=== PATIENT | female | born 1975 | race Caucasian/White ===

== ENCOUNTER 2020-12-08 14:55 | Observation (INO) | payer OTHER ==
[2020-12-08] MEDS ORDERED: ONDANSETRON 4 MG/2 ML VIAL IVP STA (15:28)
[2020-12-08] MEDS ORDERED: MORPHINE SULFATE 2 MG/ML SYRINGE IVP ONE (15:29)
--- NOTE | 2020-12-08 15:32 | ED ---
Abdominal Pain HPI - General Chief Complaint: Abdominal Pain Stated Complaint: Abd Pain Source: patient, RN notes reviewed, old records reviewed Mode of arrival: wheelchair Limitations: no limitations - History of Present Illness Initial Comments: 45-year-old white female, alert and oriented 4, presents to the emergency room with complaints of right lower quadrant pain for one week. Patient states it is constant and seems to be getting worse. She states she googled it and thinks it might be her appendix. She states that she has been feeling hot but has not actually checked her temperature. She has nausea and vomited once last night but mostly phlegm. She denies any diarrhea. Patient has had for C-sections but no other abdominal surgeries. She states she does not take any medicine on a daily basis. She also states that she has been depressed for the recent loss of her father. MD Complaint: abdominal pain -: week(s) (1) Location: RLQ Radiation: none Migration to: no migration Severity scale (1-10): 7 Quality: sharp Consistency: constant Improves With: nothing Worsens With: nothing Associated Symptoms: nausea, other (Weakness) - Related Data LMP Date: 12/03/20 LMP (females 10-50): last week Allergies Allergy/AdvReac Type Severity Reaction Status Date / Time No Known Allergies Allergy Verified 12/08/20 15:06 Review of Systems ROS Statement: Those systems with pertinent positive or pertinent negative responses have been documented in the HPI. ROS Other: All systems not noted in ROS Statement are negative. Past Medical History Past Medical History: No Reported History Additional Past Medical History / Comment(s): manic depression History of Any Multi-Drug Resistant Organisms: None Reported Past Surgical History: Adenoidectomy, Section, Tonsillectomy Past Psychological History: Anxiety, Bipolar, Depression Smoking Status: Current every day smoker Past Alcohol Use History: None Reported Past Drug Use History: Marijuana General Exam Limitations: no limitations General appearance: alert, in no apparent distress Head exam: Present: atraumatic, normocephalic, normal inspection Eye exam: Present: normal appearance, PERRL, EOMI. Absent: scleral icterus, conjunctival injection, periorbital swelling Pupils: Present: normal accommodation ENT exam: Present: normal exam, normal oropharynx, mucous membranes moist Neck exam: Present: normal inspection, full ROM. Absent: tenderness, meningism us, lymphadenopathy, thyromegaly Respiratory exam: Present: normal lung sounds bilaterally. Absent: respiratory distress, wheezes, rales, rhonchi, stridor, chest wall tenderness, accessory muscle use, decreased breath sounds Cardiovascular Exam: Present: regular rate, normal rhythm, normal heart sounds. Absent: systolic murmur, diastolic murmur, rubs, gallop, clicks, JVD GI/Abdominal exam: Present: soft, tenderness (Right lower quadrant), normal bowel sounds, other (Negative psoas). Absent: distended, guarding, rebound, rigid, mass Extremities exam: Present: normal inspection, full ROM, normal capillary refill. Absent: tenderness, pedal edema, joint swelling, calf tenderness Back exam: Present: normal inspection, full ROM. Absent: tenderness, CVA tenderness (R), CVA tenderness (L), muscle spasm, paraspinal tenderness, vertebral tenderness Neurological exam: Present: alert, oriented X3, CN II-XII intact Psychiatric exam: Present: normal affect, normal mood Skin exam: Present: warm, dry, intact, normal color. Absent: rash, cyanosis, diaphoretic, erythema, petechiae, pallor, mottled Course Vital Signs 12/08/20 12/08/20 15:07 16:46 Temperature 98.1 F Pulse Rate 94 68 Respiratory 20 18 Rate Blood Pressure 114/70 109/72 O2 Sat by Pulse 100 100 Oximetry Medical Decision Making - Medical Decision Making UA shows 2+ ketones with large blood and small leukocyte esterase and no nitrites. Patient states she is just finishing her menses. Her WBC count 19.3. CT of the abdomen and pelvis there is a small air bubble in the appendix at the attachment with the cecum. appendix is not identified could be consistent with an appendicitis with elevated WBC count. Patient was started on Zosyn and surgery was contacted. Patient will be admitted. Case discussed with . - Lab Data Result diagrams: 12/08/20 15:31 12/08/20 15:31 Lab Results 12/08/20 12/08/20 12/08/20 Range/Units 08:30 15:31 15:31 WBC 19.3 H (3.8-10.6) k/uL RBC 4.14 (3.80-5.40) m/uL Hgb 13.8 (11.4-16.0) gm/dL Hct 42.8 (34.0-46.0) % MCV 103.3 H (80.0-100.0) fL MCH 33.4 (25.0-35.0) pg MCHC 32.3 (31.0-37.0) g/dL RDW 12.4 (11.5-15.5) % Plt Count 349 (150-450) k/uL MPV 7.5 Neutrophils % 85 % Lymphocytes % 8 % Monocytes % 5 % Eosinophils % 1 % Basophils % 0 % Neutrophils # 16.4 H (1.3-7.7) k/uL Lymphocytes # 1.5 (1.0-4.8) k/uL Monocytes # 0.9 (0-1.0) k/uL Eosinophils # 0.2 (0-0.7) k/uL Basophils # 0.1 (0-0.2) k/uL Macrocytosis Slight Sodium (137-145) mmol/L Potassium (3.5-5.1) mmol/L Chloride (98-107) mmol/L Carbon Dioxide (22-30) mmol/L Anion Gap mmol/L BUN (7-17) mg/dL Creatinine (0.52-1.04) mg/dL Est GFR (CKD-EPI)AfAm (>60 ml/min/1.73 sqM) Est GFR (CKD-EPI)NonAf (>60 ml/min/1.73 sqM) Glucose (74-99) mg/dL Plasma Lactic Acid Rolando (0.7-2.0) mmol/L Calcium (8.4-10.2) mg/dL Total Bilirubin (0.2-1.3) mg/dL AST (14-36) U/L ALT (4-34) U/L Alkaline Phosphatase (38-126) U/L Total Protein (6.3-8.2) g/dL Albumin (3.5-5.0) g/dL Amylase (30-110) U/L Lipase (23-300) U/L Urine Color Yellow Urine Appearance Cloudy H (Clear) Urine pH 5.5 (5.0-8.0) Ur Specific Mclean 1.027 (1.001-1.035) Urine Protein Trace H (Negative) Urine Glucose (UA) Negative (Negative) Urine Ketones 2+ H (Negative) Urine Blood Large H (Negative) Urine Nitrite Negative (Negative) Urine Bilirubin Negative (Negative) Urine Urobilinogen <2.0 (<2.0) mg/dL Ur Leukocyte Esterase Small H (Negative) Urine RBC 9 H (0-5) /hpf Urine WBC 7 H (0-5) /hpf Ur Squamous Epith Cells 9 H (0-4) /hpf Urine Bacteria Rare H (None) /hpf Urine Mucus Occasional H (None) /hpf Urine HCG, Qual Not Detected (Not Detectd) 12/08/20 12/08/20 Range/Units 15:31 15:31 WBC (3.8-10.6) k/uL RBC (3.80-5.40) m/uL Hgb (11.4-16.0) gm/dL Hct (34.0-46.0) % MCV (80.0-100.0) fL MCH (25.0-35.0) pg MCHC (31.0-37.0) g/dL RDW (11.5-15.5) % Plt Count (150-450) k/uL MPV Neutrophils % % Lymphocytes % % Monocytes % % Eosinophils % % Basophils % % Neutrophils # (1.3-7.7) k/uL Lymphocytes # (1.0-4.8) k/uL Monocytes # (0-1.0) k/uL Eosinophils # (0-0.7) k/uL Basophils # (0-0.2) k/uL Macrocytosis Sodium 133 L (137-145) mmol/L Potassium 4.1 (3.5-5.1) mmol/L Chloride 100 (98-107) mmol/L Carbon Dioxide 24 (22-30) mmol/L Anion Gap 9 mmol/L BUN 14 (7-17) mg/dL Creatinine 0.75 (0.52-1.04) mg/dL Est GFR (CKD-EPI)AfAm >90 (>60 ml/min/1.73 sqM) Est GFR (CKD-EPI)NonAf >90 (>60 ml/min/1.73 sqM) Glucose 102 H (74-99) mg/dL Plasma Lactic Acid Rolando 1.4 (0.7-2.0) mmol/L Calcium 9.5 (8.4-10.2) mg/dL Total Bilirubin 0.5 (0.2-1.3) mg/dL AST 29 (14-36) U/L ALT 13 (4-34) U/L Alkaline Phosphatase 75 (38-126) U/L Total Protein 7.1 (6.3-8.2) g/dL Albumin 4.4 (3.5-5.0) g/dL Amylase 37 (30-110) U/L Lipase 11 L (23-300) U/L Urine Color Urine Appearance (Clear) Urine pH (5.0-8.0) Ur Specific Mclean (1.001-1.035) Urine Protein (Negative) Urine Glucose (UA) (Negative) Urine Ketones (Negative) Urine Blood (Negative) Urine Nitrite (Negative) Urine Bilirubin (Negative) Urine Urobilinogen (<2.0) mg/dL Ur Leukocyte Esterase (Negative) Urine RBC (0-5) /hpf Urine WBC (0-5) /hpf Ur Squamous Epith Cells (0-4) /hpf Urine Bacteria (None) /hpf Urine Mucus (None) /hpf Urine HCG, Qual (Not Detectd) Disposition Clinical Impression: Abdominal pain Disposition: ADMITTED IP TO THIS [facility] Condition: Good Referrals: None,Stated [Primary Care Provider] - 1-2 days Decision Date: 12/08/20 Decision Time: 16:56
[2020-12-08 15:39] LABS: Basophils # (A) 0.1 k/uL (0-0.2); Basophils % (A) 0 %; Eosinophils # (A) 0.2 k/uL (0-0.7); Eosinophils % (A) 1 %; HCT 42.8 % (34.0-46.0); HGB 13.8 gm/dL (11.4-16.0); Lymphocytes # (A) 1.5 k/uL (1.0-4.8); Lymphocytes % (A) 8 %; MCH 33.4 pg (25.0-35.0); MCHC 32.3 g/dL (31.0-37.0); MCV 103.3 fL (80.0-100.0); Macrocytosis Slight; Mean Platelet Volume 7.5; Monocytes # (A) 0.9 k/uL (0-1.0); Monocytes % (A) 5 %; Neutrophils # (A) 16.4 k/uL (1.3-7.7); Neutrophils % (A) 85 %; Platelet Count 349 k/uL (150-450); RBC 4.14 m/uL (3.80-5.40); RDW 12.4 % (11.5-15.5); WBC 19.3 k/uL (3.8-10.6)
[2020-12-08 15:41] LABS: Appearance,Urine Cloudy (Clear); Bacteria,Urine Rare /hpf; Bilirubin,Urine Negative (Negative); Blood,Urine Large (Negative); Color,Urine Yellow; Glucose,Urine (UA) Negative (Negative); Ketones,Urine 2+ (Negative); Leukocyte Esterase,Urine Small (Negative); Mucus,Urine Occasional /hpf; Nitrite,Urine Negative (Negative); PH, Urine 5.5 (5.0-8.0); Protein,Urine Trace (Negative); RBC,Urine 9 /hpf (0-5); Specific Gravity,Urine 1.027 (1.001-1.035); Squamous Epithelial Cell,Urine 9 /hpf (0-4); Urobilinogen,Urine <2.0 mg/dL (<2.0); WBC,Urine 7 /hpf (0-5)
[2020-12-08 15:57] LABS: ALT 13 U/L (4-34); AST 29 U/L (14-36); African American GFR (CKD) >90 (>60 ml/min/1.73 sqM); Albumin 4.4 g/dL (3.5-5.0); Alkaline Phosphatase 75 U/L (38-126); Amylase 37 U/L (30-110); Anion Gap 9 mmol/L; Blood Urea Nitrogen 14 mg/dL (7-17); Calcium 9.5 mg/dL (8.4-10.2); Carbon Dioxide 24 mmol/L (22-30); Chloride 100 mmol/L (98-107); Glucose 102 mg/dL (74-99); Lipase 11 U/L (23-300); Non-African American GFR(CKD) >90 (>60 ml/min/1.73 sqM); Potassium 4.1 mmol/L (3.5-5.1); Sodium 133 mmol/L (137-145); Total Bilirubin 0.5 mg/dL (0.2-1.3); Total Protein 7.1 g/dL (6.3-8.2)
--- NOTE | 2020-12-08 16:13 | CT ---
EXAMINATION TYPE: CT abdomen pelvis wo con DATE OF EXAM: 12/08/2020 COMPARISON: None HISTORY: RLQ pain with nausea for [address] DLP: 276.8 mGycm Automated exposure control for dose reduction was used. Images obtained from the diaphragm to the floor the pelvis with no contrast. Lung bases are clear. There is no pleural effusion. Heart size is normal. There is no pericardial eff usion. The stomach is intact. Liver spleen pancreas gallbladder appear intact. The bile ducts are not dilated. There is no adrenal mass. Kidneys have normal size. There is 3 mm calculus medial right kidney. There is no hydronephrosis. Ureters are not dilated. There is no sign of retroperitoneal adenopathy. Bladd er distends smoothly. There is no inguinal hernia. The uterus is anteverted. There is no pelvic mass. There is no free fluid in the pelvis. There is no evidence of mesenteric edema. There is no ascites or free air. There is no evidence of meliza wel obstruction. Appendix is not seen. There is no sign of thickened appendix. Terminal ileum appears normal. The lumbar vertebra have normal spacing and alignment. Posterior elements are intact. There is no com pression fracture. The bony pelvis appears normal. There is no hip dysplasia. Hip joints appear mak l. IMPRESSION: Negative CT scan abdomen and pelvis. Appendix not identified. This could be appendectomy and should B E correlated with the surgical history. There is small air bubble in the appendix at the attachment w ith the cecum. The remainder of the appendix is not identified.
[2020-12-08] MEDS ORDERED: SODIUM CHLORIDE 0.9% 1,000 ML IV ONE (16:57)
[2020-12-08] MEDS ORDERED: PIPERACILLIN-TAZOBACTAM 3.375 GM in SODIUM CHLORIDE 0.9% 100 ML IVPB STA (17:40)
[2020-12-08] MEDS ORDERED: MORPHINE SULFATE 4 MG/ML SYRINGE IV PRN (17:41)
[2020-12-08] MEDS ORDERED: NALOXONE 0.4 MG/ML 1 ML VIAL IV PRN (17:41)
[2020-12-08] MEDS: SODIUM CHLORIDE 0.9% 1,000 ML IV SCH (18:55)
[2020-12-09] MEDS: PIPERACILLIN-TAZOBACTAM 3.375 GM in SODIUM CHLORIDE 0.9% 100 ML IVPB SCH ×3 (02:42→18:49)
[2020-12-09 07:16] LABS: Basophils % (A) 0 %; Eosinophils # (A) 0.1 k/uL (0-0.7); Eosinophils % (A) 1 %; HCT 38.5 % (34.0-46.0); HGB 12.7 gm/dL (11.4-16.0); Lymphocytes # (A) 3.1 k/uL (1.0-4.8); Lymphocytes % (A) 32 %; MCH 34.2 pg (25.0-35.0); MCV 103.6 fL (80.0-100.0); Macrocytosis Slight; Mean Platelet Volume 7.5; Monocytes # (A) 0.6 k/uL (0-1.0); Monocytes % (A) 6 %; Neutrophils # (A) 5.8 k/uL (1.3-7.7); Neutrophils % (A) 59 %; Platelet Count 314 k/uL (150-450); RBC 3.72 m/uL (3.80-5.40); RDW 12.2 % (11.5-15.5); WBC 9.8 k/uL (3.8-10.6)
--- NOTE | 2020-12-09 08:30 | XR ---
EXAMINATION TYPE: XR chest 2V DATE OF EXAM: 12/09/2020 COMPARISON: NONE HISTORY: Congested cough, reports coughing up blood TECHNIQUE: Frontal and lateral views of the chest are obtained. FINDINGS: There is no focal air space opacity. Hyperinflation compatible with COPD. No evidence for pneumothorax. No pleural effusion. The cardiac silhouette size is within normal limits. The osseous structures are grossly intact. IMPRESSION: 1. Correlate for COPD.
--- NOTE | 2020-12-09 09:33 | P.GSHP ---
History of Present Illness H&P Date: 12/09/20 CHIEF COMPLAINT: Abdominal pain HISTORY OF PRESENT ILLNESS: This is a 45-year-old female with prior history of nicotine dependence, anxiety, depression and bipolar. Past surgical history includes . She presents to the hospital with 1 week complaint of right lower quadrant pain. Her pain has been constant and continues to increase. Patient reports that she's been feeling hot she's had some nausea and vomited once. PAST MEDICAL HISTORY: See list. PAST SURGICAL HISTORY: See list. MEDICATIONS: See list. ALLERGIES: See list. SOCIAL HISTORY: No illicit drug use. REVIEW OF SYSTEMS: CONSTITUTIONAL: Denies fever or chills. HEENT: Denies blurred vision, vision changes, or eye pain. Denies hemoptysis CARDIOVASCULAR: Denies chest pain or pressure. RESPIRATORY: No shortness of breath. GASTROINTESTINAL: See HPI for pertinent findings HEMATOLOGIC: Denies bleeding disorders. GENITOURINARY: Denies any blood in urine or increased urinary frequency. SKIN: Denies pruitis. Denies rash. PHYSICAL EXAM: VITAL SIGNS: Reviewed GENERAL: Well-developed in no acute distress. HEENT: No sclera icterus. Extraocular movements grossly intact. Moist buccal mucosa. Head is atraumatic, normocephalic. No nasal drainage. ABDOMEN: Soft. Nondistended. Tenderness with palpation to right lower quadrant. NEUROLOGIC: Alert and oriented. Cranial nerves II through XII grossly intact. LABORATORY DATA: WBC 19.3 down to 9.8 hemoglobin, 0.7 platelets 314 sodium 133 potassium 4.1 crea tinine 0.75 lactic 1.4 LFTs normal lipase 11 Urinalysis no evidence of infection Urine hCG not detected IMAGING: Computed tomography scan of abdomen and pelvis appendix not identified. This could be appendectomy should be correlated with surgical history. There is small air bubble in the appendix at the attachment with the cecum. The remainder of the appendix is not identified ASSESSMENT: 1. Acute appendicitis 2. Nicotine dependence 3. Bipolar history PLAN: -Patient scheduled for laparoscopic appendectomy today with Dr. Bobo -Keep patient nothing by mouth -Continue IV fluids -Continue IV antibiotics -Continue pain medication as needed -Consult placed for medical management and psychiatry Physician Line Fixer note has been reviewed by physician. Signing provider agrees with the documented findings, assessment, and plan of care. Past Medical History Past Medical History: No Reported History Additional Past Medical History / Comment(s): Manic depression, History of Any Multi-Drug Resistant Organisms: None Reported Past Surgical History: Adenoidectomy, Section, Hernia Repair, Tonsillectomy Additional Past Surgical History / Comment(s): Femoral hernia surgery with mesh Past Psychological History: Anxiety, Bipolar, Depression Smoking Status: Current every day smoker Past Alcohol Use History: None Reported Past Drug Use History: Marijuana - Past Family History Mother Family Medical History: Diabetes Mellitus, Hypertension Medications and Allergies Home Medications Medication Instructions Recorded Confirmed Type No Known Home Medications 12/08/20 12/08/20 History Allergies Allergy/AdvReac Type Severity Reaction Status Date / Time No Known Allergies Allergy Verified 12/08/20 21:58 Surgical - Exam Vital Signs Temp Pulse Resp BP Pulse Ox 98.1 F 94 20 114/70 100 12/08/20 15:07 12/08/20 15:07 12/08/20 15:07 12/08/20 15:07 12/08/20 15:07 Results - Labs 12/09/20 07:05 12/08/20 15:31 Abnormal Lab Results - Last 24 Hours (Table) 12/08/20 12/08/20 12/08/20 Range/Units 15:31 15:31 15:31 WBC 19.3 H (3.8-10.6) k/uL RBC (3.80-5.40) m/uL MCV 103.3 H (80.0-100.0) fL Neutrophils # 16.4 H (1.3-7.7) k/uL Sodium 133 L (137-145) mmol/L Glucose 102 H (74-99) mg/dL Lipase 11 L (23-300) U/L Urine Appearance Cloudy H (Clear) Urine Protein Trace H (Negative) Urine Ketones 2+ H (Negative) Urine Blood Large H (Negative) Ur Leukocyte Esterase Small H (Negative) Urine RBC 9 H (0-5) /hpf Urine WBC 7 H (0-5) /hpf Ur Squamous Epith Cells 9 H (0-4) /hpf Urine Bacteria Rare H (None) /hpf Urine Mucus Occasional H (None) /hpf 12/09/20 Range/Units 07:05 WBC (3.8-10.6) k/uL RBC 3.72 L (3.80-5.40) m/uL MCV 103.6 H (80.0-100.0) fL Neutrophils # (1.3-7.7) k/uL Sodium (137-145) mmol/L Glucose (74-99) mg/dL Lipase (23-300) U/L Urine Appearance (Clear) Urine Protein (Negative) Urine Ketones (Negative) Urine Blood (Negative) Ur Leukocyte Esterase (Negative) Urine RBC (0-5) /hpf Urine WBC (0-5) /hpf Ur Squamous Epith Cells (0-4) /hpf Urine Bacteria (None) /hpf Urine Mucus (None) /hpf Diabetes panel 12/08/20 Range/Units 15:31 Sodium 133 L (137-145) mmol/L Potassium 4.1 (3.5-5.1) mmol/L Chloride 100 (98-107) mmol/L Carbon Dioxide 24 (22-30) mmol/L BUN 14 (7-17) mg/dL Creatinine 0.75 (0.52-1.04) mg/dL Glucose 102 H (74-99) mg/dL Calcium 9.5 (8.4-10.2) mg/dL AST 29 (14-36) U/L ALT 13 (4-34) U/L Alkaline Phosphatase 75 (38-126) U/L Total Protein 7.1 (6.3-8.2) g/dL Albumin 4.4 (3.5-5.0) g/dL Calcium panel 12/08/20 Range/Units 15:31 Calcium 9.5 (8.4-10.2) mg/dL Albumin 4.4 (3.5-5.0) g/dL Pituitary panel 12/08/20 Range/Units 15:31 Sodium 133 L (137-145) mmol/L Potassium 4.1 (3.5-5.1) mmol/L Chloride 100 (98-107) mmol/L Carbon Dioxide 24 (22-30) mmol/L BUN 14 (7-17) mg/dL Creatinine 0.75 (0.52-1.04) mg/dL Glucose 102 H (74-99) mg/dL Calcium 9.5 (8.4-10.2) mg/dL Adrenal panel 12/08/20 Range/Units 15:31 Sodium 133 L (137-145) mmol/L Potassium 4.1 (3.5-5.1) mmol/L Chloride 100 (98-107) mmol/L Carbon Dioxide 24 (22-30) mmol/L BUN 14 (7-17) mg/dL Creatinine 0.75 (0.52-1.04) mg/dL Glucose 102 H (74-99) mg/dL Calcium 9.5 (8.4-10.2) mg/dL Total Bilirubin 0.5 (0.2-1.3) mg/dL AST 29 (14-36) U/L ALT 13 (4-34) U/L Alkaline Phosphatase 75 (38-126) U/L Total Protein 7.1 (6.3-8.2) g/dL Albumin 4.4 (3.5-5.0) g/dL
[2020-12-09] MEDS ORDERED: ONDANSETRON 4 MG/2 ML VIAL ONE ×2 (14:48→16:31)
[2020-12-09] MEDS ORDERED: IV FLUID CONTINUATION 600 ML IV ONE (14:50)
--- NOTE | 2020-12-09 14:50 | P.CN ---
Psychiatric Consult - . Consult date: 12/09/20 Consult:: The patient's chart and history was reviewed by this Psychiatrist. Psychiatry attempted to evaluate the patient today at 1445 but was informed by the unit nurse that the patient is currently in surgery. We will re-attempt to evaluate the patient tomorrow. Regards, Jean Kenny MD 12/09/20 14:49
[2020-12-09 15:04] VITALS: BMI 18.8
[2020-12-09] MEDS ORDERED: HEPARIN SODIUM,PORCINE 5,000 UNIT/ML 1 ML VIAL SQ ONE (15:04)
[2020-12-09] MEDS ORDERED: ONDANSETRON 4 MG/2 ML VIAL IVP ONE ×3 (15:04→16:34)
[2020-12-09] MEDS ORDERED: NEOSTIGMINE 1 MG/ML 10 ML VIAL ONE (15:25)
[2020-12-09] MEDS ORDERED: LIDOCAINE 1% INJ 10MG/ML (20 ML MDV) ONE (15:25)
[2020-12-09] MEDS ORDERED: SUCCINYLCHOLINE CHLORIDE 100 MG/5 ML SYR IV ONE (15:25)
[2020-12-09] MEDS ORDERED: PROPOFOL 10 MG/ML 20 ML VIAL IV ONE (15:25)
[2020-12-09] MEDS ORDERED: fentaNYL (PF) 50 MCG/ML 2 ML AMP ONE (15:25)
[2020-12-09] MEDS ORDERED: MIDAZOLAM 2 MG/2 ML VIAL ONE (15:25)
[2020-12-09] MEDS ORDERED: GLYCOPYRROLATE 0.2 MG/ML 2 ML VIAL ONE (15:25)
[2020-12-09] MEDS ORDERED: ROCURONIUM 10 MG/ML (5 ML VIAL) IV ONE (15:25)
[2020-12-09] MEDS ORDERED: LIDOCAINE 2%-EPI 1:100,000 20 ML VIAL SQ ONE (15:38)
--- NOTE | 2020-12-09 16:04 | P.OP ---
Date of Procedure: 12/09/20 Preoperative Diagnosis: Acute appendicitis Postoperative Diagnosis: Acute appendicitis Procedure(s) Performed: Laparoscopic appendectomy Anesthesia: WON Surgeon: Lorenzo Bobo Estimated Blood Loss (ml): 5 Pathology: other (Appendix) Condition: stable Disposition: PACU Description of Procedure: HarThe patient's placed on the operating table in the supine position. The patient received general anesthesia. The abdomen was prepped and draped in the usual sterile fashion. The skin was anesthetized 1% local Xylocaine at the trocar sites. Using an 11 blade the skin was incised at the umbilicus. The umbilicus was grasped with a [place] clamp and then a Veress needle was placed into the peritoneal cavity. Position of the Veress needle was confirmed with positive drop test. After adequate insufflation a 5 mm trocar was placed into the peritoneal cavity. The abdomen was further insufflated. And then the laparoscope was placed in the peritoneal cavity. Next a 5 mm trocar was placed in the midline suprapubic position. And then a 10 mm trocar was placed in the midline epigastric position. The patient was rotated with the right side up and in Trendelenburg. The appendix was visualized. The appendix appeared to be inflamed. The appendix was grasped and then using the Harmonic scissors the mesoappendix was divided. A PDS Endoloop was then placed around the base of the appendix. And then the appendix was divided using Harmonic scissors. The appendix was placed into an Endo Catch and brought out through the 10 mm trocar site. The abdomen was irrigated. There is no bleeding seen. The trochars withdrawn. The skin was closed interrupted 3-0 Monocryl suture. Dermabond dressing was applied. Patient was sent to recovery room in stable condition.
[2020-12-09] MEDS ORDERED: LACTATED RINGERS 1,000 ML IV ONE (16:08)
[2020-12-09] MEDS ORDERED: HYDROmorphone 0.5 MG/0.5 ML SYRINGE IVP ONE (16:40)
[2020-12-09] MEDS: SODIUM CHLORIDE 0.9% 1,000 ML IV SCH ×2 (18:53→20:33)
[2020-12-09] MEDS ORDERED: HEPARIN SODIUM,PORCINE/PF 5,000 UNIT/0.5 ML SYRINGE SQ SCH (21:00)
--- NOTE | 2020-12-09 21:59 | P.CONS ---
History of Present Illness - Reason for Consult Consult date: 12/09/20 Medical management - Chief Complaint Abdominal pain - History of Present Illness Patient is a 45-year-old female with a known history of maniac depression, anxiety, bipolar disorder, currently everyday smoker and marijuana use presents to ER with the complaints of right lower quadrant abdominal pain for the past 1 week. Due to worsening pain patient presented to ER. Pain is associated with nausea and episode of vomiting. Patient was also complaining of subjective fevers on admission. Denied any diarrhea. He currently does not take any other medications. No recent illnesses. No cough or sputum production. No chest pain or shortness of breath. Chest x-ray showed correlate for COPD CT of abdomen pelvis showed appendix not identified. This could be appendectomy and correlate with surgical history. There is small air bubble in the appendix and the attachment with the cecum. The remainder of the appendix is not identified. Laboratory data showed WBC 19.3, hemoglobin 13.8 and platelets 349 Sodium 133 potassium 4.1 chloride 100 BUN 14 and creatinine 0.75 liver enzymes are not elevated Urinalysis showed cloudy with large blood and small leukocytes trace Review of Systems Constitutional: Patient denies any fever or chills . No generalized weakness or weight loss. Abdomen: as per HPI. Cardiovascular: Patient denies any chest pain or short of breath no palpitations. Respiratory: patient denied any cough or sputum production. No shortness of b reath Neurologic: Patient denied any numbness or tingling headache. Musculoskeletal: Patient denies any complaints of joint swelling or deformity. Skin: Negative Psychiatric: Negative Endocrine: No heat or cold intolerance. No recent weight gain. Genitourinary: No dysuria or hematuria. All other 14 point ROS negative except the above Past Medical History Past Medical History: No Reported History Additional Past Medical History / Comment(s): Manic depression, History of Any Multi-Drug Resistant Organisms: None Reported Past Surgical History: Adenoidectomy, Section, Hernia Repair, Tonsillectomy Additional Past Surgical History / Comment(s): Femoral hernia surgery with mesh Past Psychological History: Anxiety, Bipolar, Depression Smoking Status: Current every day smoker Past Alcohol Use History: None Reported Past Drug Use History: Marijuana - Past Family History Mother Family Medical History: Diabetes Mellitus, Hypertension Medications and Allergies Home Medications Medication Instructions Recorded Confirmed Type No Known Home Medications 12/08/20 12/08/20 History Allergies Allergy/AdvReac Type Severity Reaction Status Date / Time No Known Allergies Allergy Verified 12/09/20 14:34 Physical Exam Vitals: Vital Signs Temp Pulse Pulse Pulse Resp BP BP 12/09/20 08:40 97.6 F 61 16 92/53 12/09/20 08:25 97.6 F 61 16 92/53 12/09/20 08:00 16 12/09/20 01:48 98.1 F 60 16 100/53 12/08/20 20:41 98.8 F 75 18 104/61 12/08/20 18:52 98.4 F 65 18 110/71 12/08/20 18:14 98.1 F 71 20 103/61 12/08/20 16:46 68 18 109/72 12/08/20 15:07 98.1 F 94 20 114/70 Pulse Ox 12/09/20 08:40 95 12/09/20 08:25 95 12/09/20 08:00 12/09/20 01:48 96 12/08/20 20:41 96 12/08/20 18:52 98 12/08/20 18:14 97 12/08/20 16:46 100 12/08/20 15:07 100 Intake and Output 12/08/20 12/09/20 12/09/20 22:59 06:59 14:59 Intake Total 1620 Output Total 400 Balance 1620 -400 Intake: Oral 1620 Output: Urine 400 Other: Weight 49.9 kg PHYSICAL EXAMINATION: Patient is lying in the bed comfortably, no acute distress, awake alert and oriented.. HEENT: Normocephalic. Neck is supple. Pupils reactive. Nostrils clear. Oral cavity is moist. Neck reveals no JVD, carotid bruits, or thyromegaly. CHEST EXAMINATION: Trachea is central. Symmetrical expansion. Lung so clear to auscultation and percussion. CARDIAC: Normal S1, S2 with no gallops. No murmurs ABDOMEN: Soft. Mild right lower quadrant tenderness. Surgical site intact.Bowel sounds normal. No organomegaly. No abdominal bruits. Extremities: reveal no edema. No clubbing or cyanosis Neurologically awake, alert, oriented x3 with well-coordinated movements. No focal deficits noted Skin: No rash or skin lesions. Psychiatric: Coperative. anxious. Musculoskeletal: No joint swelling or deformity. Normal range of motion. Results CBC & Chem 7: 12/09/20 07:05 12/08/20 15:31 Labs: Abnormal Lab Results - Last 24 Hours (Table) 12/08/20 12/08/20 12/08/20 Range/Units 15:31 15:31 15:31 WBC 19.3 H (3.8-10.6) k/uL RBC (3.80-5.40) m/uL MCV 103.3 H (80.0-100.0) fL Neutrophils # 16.4 H (1.3-7.7) k/uL Sodium 133 L (137-145) mmol/L Glucose 102 H (74-99) mg/dL Lipase 11 L (23-300) U/L Urine Appearance Cloudy H (Clear) Urine Protein Trace H (Negative) Urine Ketones 2+ H (Negative) Urine Blood Large H (Negative) Ur Leukocyte Esterase Small H (Negative) Urine RBC 9 H (0-5) /hpf Urine WBC 7 H (0-5) /hpf Ur Squamous Epith Cells 9 H (0-4) /hpf Urine Bacteria Rare H (None) /hpf Urine Mucus Occasional H (None) /hpf 12/09/20 Range/Units 07:05 WBC (3.8-10.6) k/uL RBC 3.72 L (3.80-5.40) m/uL MCV 103.6 H (80.0-100.0) fL Neutrophils # (1.3-7.7) k/uL Sodium (137-145) mmol/L Glucose (74-99) mg/dL Lipase (23-300) U/L Urine Appearance (Clear) Urine Protein (Negative) Urine Ketones (Negative) Urine Blood (Negative) Ur Leukocyte Esterase (Negative) Urine RBC (0-5) /hpf Urine WBC (0-5) /hpf Ur Squamous Epith Cells (0-4) /hpf Urine Bacteria (None) /hpf Urine Mucus (None) /hpf Assessment and Plan Assessment: Right lower quadrant pain abdominal pain due to acute appendicitis. Anxiety/bipolar disorder Marijuana use Currently everyday smoking Leukocytosis GI and DVT prophylaxis. Plan: Patient will be cannula pain medications and IV hydration. Patient ambulate laparoscopic appendectomy. Continue with empiric antibiotics. Follow-up blood cultures. Further recommendations based on clinical course. Patient does have extensive psychiatric history but currently does not take any medications. Psychiatry was consulted for evaluation. We will continue to follow with you. Thank you for your consult.
[2020-12-09] MEDS: HYDROmorphone 1 MG/ML 1 ML SYRINGE IVP PRN (23:29)
[2020-12-10] MEDS: PIPERACILLIN-TAZOBACTAM 3.375 GM in SODIUM CHLORIDE 0.9% 100 ML IVPB SCH ×2 (02:19→11:04)
[2020-12-10] MEDS: HYDROmorphone 1 MG/ML 1 ML SYRINGE IVP PRN ×2 (03:39→07:52)
[2020-12-10] MEDS: SODIUM CHLORIDE 0.9% 1,000 ML IV SCH (05:29)
[2020-12-10] MEDS ORDERED: ENOXAPARIN 40 MG/0.4 ML SYRINGE SQ SCH (09:00)
[2020-12-10] MEDS ORDERED: HYDROcodone/APAP 5-325MG 1 EACH TAB PO PRN (09:35)
--- NOTE | 2020-12-10 13:32 | P.CN ---
Psychiatric Consult - . Consult date: 12/10/20 Consult:: IDENTIFYING DATA: This patient is a 45 year-old female with a history of anxiety, depression and bipolar disorder who presented to the hospital for abdominal pain and was subsequently scheduled for an appendectomy. HISTORY OF PRESENT ILLNESS: The patient is status post appendectomy on 12/09/2020. Psychiatry was consulted for evaluation of depression. The patient noted on screening on admission that she was experiencing significant depression exemplified by low mood, low motivation, low energy, crying episodes, and suicidal ideation most days of the week. When evaluated by this provider, the patient states that she is "not feeling depressed right now." She expresses she is comfortable after the surgery and just wants to relax. She does admit to depressive symptoms prior to her presentation to this hospital and admits to intermittent but chronic suicidal ideation. She does report she has attempted suicide in the past but states this was several years ago. She denies any current suicidal or homicidal ideation, i ntention, and/or plan. She denies any auditory or visual hallucinations. She reports no paranoia or delusions. She does express she is feeling very tired but relaxed and comfortable and does not wish to continue the psychiatric interview. She does state that she will follow-up with [facility] outpatient if she has any concerns regarding her mental health. PAST PSYCHIATRIC HISTORY: Patient has a reported history of depression, anxiety and bipolar disorder. She terminates the interview before further history is taken. PAST MEDICAL HISTORY: Past Medical History: No Reported History Additional Past Medical History / Comment(s): Manic depression, History of Any Multi-Drug Resistant Organisms: None Reported Past Surgical History: Adenoidectomy, Section, Hernia Repair, Tonsillectomy Additional Past Surgical History / Comment(s): Femoral hernia surgery with mesh Past Psychological History: Anxiety, Bipolar, Depression Smoking Status: Current every day smoker Past Alcohol Use History: None Reported Past Drug Use History: Marijuana ALLERGIES: NKDA CHEMICAL DEPENDENCY HISTORY: Patient smokes marijuana and tobacco. Denies other drug use. FAMILY PSYCHIATRIC/SUBSTANCE USE HISTORY: Unable to obtain SOCIAL HISTORY: Patient is a . Currently unemployed. Lives in [place]. MENTAL STATUS EXAM: General Appearance: Patient appears to be stated age is alert, pleasant, and cooperative. Patient appears to have fair hygiene and grooming wearing hospital gown with intermittent eye contact. Behavior: Patient is calmly lying in bed without any agitated behavior. Comfortable and smiling. Speech: Patient's speech is fluent and nonpressured. Mood/Affect: Patient reports their mood is "so relaxed]", affect is congruent with appropriate range. Suicidality/Homicidality: Patient denies having any suicidal or homicidal ideation intent or plan. Perceptions: Patient denies any visual hallucinations and denies any auditory hallucinations Though content/process: There is no evidence of any delusional thought content and thought process is linear and goal-directed. Memory and concentration: AOX3, grossly intact for the purposes of this session. Can spell "WORLD" backwards Judgment and insight: Fair Vital Signs Temp 98.3 F 12/10/20 08:40 Pulse 54 L 12/10/20 08:40 Resp 17 12/10/20 08:40 BP 106/61 12/10/20 08:40 Pulse Ox 95 12/10/20 08:40 Intake & Output 12/09/20 12/10/20 12/10/20 18:59 06:59 18:59 Intake Total 1170 444 Output Total 3 1125 950 Balance 1167 -681 -950 Weight 49.9 kg Intake: IV 1050 Oral 120 444 Output: Urine 825 950 Post Void Residual 300 Estimated Blood Loss 3 Other: Voiding Method Toilet # Voids 1 Laboratory Results WBC 9.8 k/uL (3.8-10.6) 12/09/20 07:05 RBC 3.72 m/uL (3.80-5.40) L 12/09/20 07:05 Hgb 12.7 gm/dL (11.4-16.0) 12/09/20 07:05 Hct 38.5 % (34.0-46.0) 12/09/20 07:05 MCV 103.6 fL (80.0-100.0) H 12/09/20 07:05 MCH 34.2 pg (25.0-35.0) 12/09/20 07:05 MCHC 33.0 g/dL (31.0-37.0) 12/09/20 07:05 RDW 12.2 % (11.5-15.5) 12/09/20 07:05 Plt Count 314 k/uL (150-450) 12/09/20 07:05 MPV 7.5 12/09/20 07:05 Neutrophils % 59 % 12/09/20 07:05 Lymphocytes % 32 % 12/09/20 07:05 Monocytes % 6 % 12/09/20 07:05 Eosinophils % 1 % 12/09/20 07:05 Basophils % 0 % 12/09/20 07:05 Neutrophils # 5.8 k/uL (1.3-7.7) 12/09/20 07:05 Lymphocytes # 3.1 k/uL (1.0-4.8) 12/09/20 07:05 Monocytes # 0.6 k/uL (0-1.0) 12/09/20 07:05 Eosinophils # 0.1 k/uL (0-0.7) 12/09/20 07:05 Basophils # 0.0 k/uL (0-0.2) 12/09/20 07:05 Macrocytosis Slight 12/09/20 07:05 Sodium 133 mmol/L (137-145) L 12/08/20 15:31 Potassium 4.1 mmol/L (3.5-5.1) 12/08/20 15:31 Chloride 100 mmol/L (98-107) 12/08/20 15:31 Carbon Dioxide 24 mmol/L (22-30) 12/08/20 15:31 Anion Gap 9 mmol/L 12/08/20 15:31 BUN 14 mg/dL (7-17) 12/08/20 15:31 Creatinine 0.75 mg/dL (0.52-1.04) 12/08/20 15:31 Est GFR (CKD-EPI)AfAm >90 (>60 ml/min/1.73 sqM) 12/08/20 15:31 Est GFR (CKD-EPI)NonAf >90 (>60 ml/min/1.73 sqM) 12/08/20 15:31 Glucose 102 mg/dL (74-99) H 12/08/20 15:31 Plasma Lactic Acid Rolando 1.4 mmol/L (0.7-2.0) 12/08/20 15:31 Calcium 9.5 mg/dL (8.4-10.2) 12/08/20 15:31 Total Bilirubin 0.5 mg/dL (0.2-1.3) 12/08/20 15:31 AST 29 U/L (14-36) 12/08/20 15: ALT 13 U/L (4-34) 12/08/20 15:31 Alkaline Phosphatase 75 U/L (38-126) 12/08/20 15:31 Total Protein 7.1 g/dL (6.3-8.2) 12/08/20 15: Albumin 4.4 g/dL (3.5-5.0) 12/08/20 15: Amylase 37 U/L (30-110) 12/08/20 15: Lipase 11 U/L (23-300) L 12/08/20 15:31 Urine Color Yellow 12/08/20 15: Urine Appearance Cloudy (Clear) H 12/08/20 15: Urine pH 5.5 (5.0-8.0) 12/08/20 15: Ur Specific Chandler 1.027 (1.001-1.035) 12/08/20 15:31 Urine Protein Trace (Negative) H 12/08/20 15:31 Urine Glucose (UA) Negative (Negative) 12/08/20 15:31 Urine Ketones 2+ (Negative) H 12/08/20 15:31 Urine Blood Large (Negative) H 12/08/20 15:31 Urine Nitrite Negative (Negative) 12/08/20 15: Urine Bilirubin Negative (Negative) 12/08/20 15:31 Urine Urobilinogen <2.0 mg/dL (<2.0) 12/08/20 15:31 Ur Leukocyte Esterase Small (Negative) H 12/08/20 15:31 Urine RBC 9 /hpf (0-5) H 12/08/20 15:31 Urine WBC 7 /hpf (0-5) H 12/08/20 15:31 Ur Squamous Epith Cells 9 /hpf (0-4) H 12/08/20 15:31 Urine Bacteria Rare /hpf (None) H 12/08/20 15:31 Urine Mucus Occasional /hpf (None) H 12/08/20 15:31 Urine HCG, Qual Not Detected (Not Detectd) 12/08/20 08:30 IMPRESSIONS: Bipolar Disorder, unspecified Nicotine Dependence Cannabis Use PLAN: -At this time patient DOES NOT meet criteria for inpatient psychiatric admission. Patient is currently not presenting with imminent risk of harm to self or others. She is not actively psychotic. She is future-oriented and expresses that if she were to be suicidal she would return to the hospital if she felt that she was going to act on her suicidality. -Would recommend the following medication changes/additions: No medication recommendations at this time. -Psychiatry will sign off at this point, please contact with any questions. She is cleared psychiatrically for discharge. -Recommend outpatient follow-up for mental health concerns. 12/10/20 13:31
--- NOTE | 2020-12-10 13:59 | P.DS ---
Providers Date of admission: 12/08/20 17:41 Expected date of discharge: 12/10/20 Attending physician: Lorenzo Bobo Consults: 12/08/20 21:17 Consult Physician Routine Consulting Provider: Doretha Sheriff Consult Reason/Comments: Medical management Do you want consulting provider notified?: Yes, Notify in am 12/08/20 21:39 Consult Physician Routine Consulting Provider: Jean Kenny Consult Reason/Comments: Moderate to severe on depression screening Do you want consulting provider notified?: Already Contacted Primary care physician: Stated None Hospital Course: Discharge diagnosis 1. Acute appendicitis status post laparoscopic appendectomy Hospital course This is a 45-year-old female who presented with one-week complaint of right lower quadrant abdominal pain that continued to increase. She was found have evidence of acute appendicitis. She is status post laparoscopic appendectomy. Patient tolerated surgery well. Her pain is controlled. She is tolerating diet. She is afebrile. She has been up and ambulating. She is stable for discharge. Please refer to chart for any further details. Physician Chipper note has been reviewed by physician. Signing provider agrees with the documented findings, assessment, and plan of care. Patient Condition at Discharge: Stable Plan - Discharge Summary Discharge Rx Participant: No New Discharge Prescriptions: New Docusate [Colace] 100 mg PO BID #30 capsule HYDROcodone/APAP 5-325MG [Fair[place] 5-325] 1 tab PO Q6HR PRN 3 Days #12 tab PRN Reason: Pain Discharge Medication List Docusate [Colace] 100 mg PO BID #30 capsule 12/10/20 [Rx] HYDROcodone/APAP 5-325MG [Fair[place] 5-325] 1 tab PO Q6HR PRN 3 Days #12 tab 12/10/20 [Rx] Follow up Appointment(s)/Referral(s): None,Stated [Primary Care Provider] - 1-2 days Lorenzo Bobo MD [STAFF PHYSICIAN] - 1 Week Activity/Diet/Wound Care/Special Instructions: No driving while taking [place] No lifting over 10 pounds You may shower. No soaking or tub baths for 2 weeks Very light activity until you are reevaluated at your follow up appointment with your surgeon Discharge Disposition: HOME SELF-CARE
[2020-12-10 14:24] VITALS: BP 108/67; PULSE 59; RESP 16; TEMP 98.1
--- NOTE | 2020-12-10 16:20 | P.PN ---
Subjective Progress Note Date: 12/10/20 - Reason for Consult Consult date: 12/09/20 Medical management - Chief Complaint Abdominal pain - History of Present Illness Patient is a 45-year-old female with a known history of maniac depression, anxiety, bipolar disorder, currently everyday smoker and marijuana use presents to ER with the complaints of right lower quadrant abdominal pain for the past 1 week. Due to worsening pain patient presented to ER. Pain is associated with nausea and episode of vomiting. Patient was also complaining of subjective fevers on admission. Denied any diarrhea. He currently does not take any other medications. No recent illnesses. No cough or sputum production. No chest pain or shortness of breath. Chest x-ray showed correlate for COPD CT of abdomen pelvis showed appendix not identified. This could be appendectomy and correlate with surgical history. There is small air bubble in the appendix and the attachment with the cecum. The remainder of the appendix is not identified. Laboratory data showed WBC 19.3, hemoglobin 13.8 and platelets 349 Sodium 133 potassium 4.1 chloride 100 BUN 14 and creatinine 0.75 liver enzymes are not elevated Urinalysis showed cloudy with large blood and small leukocytes trace 12/10/2020 Patient is seen in follow-up this morning having some generalized lower quadrant pain states is radiating to her back. Patient is currently using a heating pad and has been walking the halls multiple times. Patient is status post appendectomy and following with surgery closely. Urology also being evaluated by psychiatry recommending to continue with current medications and outpatient follow-up with her primary care provider. Patient was maintained on IV Zosyn for possible urinary tract infection. Patient denies any dysuria or urinary frequency. White blood count within normal limits. Patient is afebrile. Review of systems: Constitutional: No reports of fatigue, fever, or chills Cardiovascular: No reports of chest pain or palpitations Respiratory: No reports of shortness of breath or cough GI: No reports of nausea, vomiting, or diarrhea : No reports of dysuria or retention Neurovascular: No reports of weakness or numbness, reports chronic back pain All medications have been reviewed Objective - Vital Signs Vital signs: Vital Signs Temp 98.3 F 12/10/20 08:40 Pulse 54 L 12/10/20 08:40 Resp 17 12/10/20 08:40 BP 106/61 12/10/20 08:40 Pulse Ox 95 12/10/20 08:40 Intake & Output 12/09/20 12/10/20 12/10/20 18:59 06:59 18:59 Intake Total 1170 444 Output Total 3 1125 400 Balance 1167 -741 400 Weight 49.9 kg Intake: IV 1050 Oral 120 444 Output: Urine 825 400 Post Void Residual 300 Estimated Blood Loss 3 Other: Voiding Method Toilet # Voids 1 - Exam Patient is sitting up in the bed comfortably, no acute distress, awake alert and oriented.. HEENT: Normocephalic. Neck is supple. Pupils reactive. Nostrils clear. Oral cavity is moist. Neck reveals no JVD, carotid bruits, or thyromegaly. CHEST EXAMINATION: Trachea is central. Symmetrical expansion. Lung so clear to auscultation and percussion. CARDIAC: Normal S1, S2 with no gallops. No murmurs ABDOMEN: Soft. Mild right lower quadrant tenderness. Surgical site intact. Bowel sounds normal. No organomegaly. No abdominal bruits. Extremities: reveal no edema. No clubbing or cyanosis Neurologically awake, alert, oriented x3 with well-coordinated movements. No focal deficits noted Skin: No rash or skin lesions. Psychiatric: Cooperative. anxious. Non-suicidal Musculoskeletal: No joint swelling or deformity. Normal range of motion. - Labs CBC & Chem 7: 12/09/20 07:05 12/08/20 15:31 Labs: Microbiology - Last 24 Hours (Table) 12/08/20 17:50 Blood Culture - Preliminary Blood No Growth after 24 hours Assessment and Plan Assessment: Right lower quadrant pain abdominal pain due to acute appendicitis. Status post appendectomy Anxiety/bipolar disorder Marijuana use Currently everyday smoking Leukocytosis, resolved GI and DVT prophylaxis Full code Plan: Patient will be continued on pain medications and IV hydration. Patient underwent laparoscopic appendectomy postop day #1. Continue with empiric antibiotics. Blood cultures remain negative. Patient denies any dysuria or urinary frequency. Further recommendations based on clinical course. Patient was seen and evaluated by psychiatry recommending continued outpatient follow-up with [facility]. We will continue to follow with surgery during hospitalization. Currently awaiting psychiatric clearance for discharge and patient is scheduled to be discharged today. Thank you for this consultation.
== END 2020-12-10 16:01 | disposition home or self-care (01) ==
LOC: EC 14:55 → 6PED 17:41
PROVIDERS: ADMIT Surgery; ATTEND Surgery
DX: K35.80 Unspecified acute appendicitis (principal); K36 Other appendicitis; K66.0 Peritoneal adhesions (postprocedural) (postinfection); F31.30 Bipolar disorder, current episode depressed, mild or moderate severity, unspecified; F41.9 Anxiety disorder, unspecified; F17.210 Nicotine dependence, cigarettes, uncomplicated; F12.90 Cannabis use, unspecified, uncomplicated; Z91.5 Personal history of self-harm; Z98.891 History of uterine scar from previous surgery; Z98.890 Other specified postprocedural states; Z83.3 Family history of diabetes mellitus; Z82.49 Family history of ischemic heart disease and other diseases of the circulatory system
CPT/HCPCS: 96374; 96375; 99285; 36415; 81025 ×2; 88304; 80053; 82150; 83605; 83690; 85025 ×2; 81001; 87040; 71046; 74176; 44970; G0378 ×3; J2543 ×3; J2250; J1644; J2710; J2405 ×2; J2001; J1650; J3010; J2270; J1170 ×3; J0330; J2704

== ENCOUNTER 2021-01-06 19:40 | Emergency (ER) | payer OTHER ==
[2021-01-06 20:28] VITALS: BP 107/71; PULSE 82; RESP 18; TEMP 99
[2021-01-06] MEDS ORDERED: PENICILLIN VK 500MG STARTER 4 TAB BTL PO STA (21:37)
[2021-01-06] MEDS ORDERED: KETOROLAC 15 MG/ML 1 ML VIAL IM STA (21:37)
--- NOTE | 2021-01-06 21:38 | ED ---
General Adult HPI - General Chief complaint: Dental/Oral Stated complaint: abscess in mouth Time Seen by Provider: 01/06/21 21:11 Source: patient Mode of arrival: ambulatory Limitations: no limitations - History of Present Illness Initial comments: 45 year old female presents to the emergency room for chief complaint of dental pain. Patient states the past couple days she has had pain in the right lower jaw area. Sates it is painful to eat. States he is having some swelling. Denies fevers.Patient has no other complaints at this time including shortness of breath, chest pain, abdominal pain, nausea or vomiting, headache, or visual changes. - Related Data Previous Rx's Medication Instructions Recorded Docusate [Colace] 100 mg PO BID #30 capsule 12/10/20 HYDROcodone/APAP 5-325MG [Parkman 1 tab PO Q6HR PRN 3 Days #12 tab 12/10/20 5-325] Acetaminophen [Tylenol] 500 mg PO Q4-6H PRN #20 tab 01/06/21 Ibuprofen [Motrin] 600 mg PO Q6HR PRN #20 tab 01/06/21 Penicillin V Potassium [Pen Vee K] 500 mg PO Q6H 10 Days #40 tablet 01/06/21 Allergies Allergy/AdvReac Type Severity Reaction Status Date / Time No Known Allergies Allergy Verified 01/06/21 20:26 Review of Systems ROS Statement: Those systems with pertinent positive or pertinent negative responses have been documented in the HPI. ROS Other: All systems not noted in ROS Statement are negative. Past Medical History Past Medical History: No Reported History Additional Past Medical History / Comment(s): Manic depression, History of Any Multi-Drug Resistant Organisms: None Reported Past Surgical History: Adenoidectomy, Section, Hernia Repair, Tonsillectomy Additional Past Surgical History / Comment(s): Femoral hernia surgery with mesh Past Psychological History: Anxiety, Bipolar, Depression Smoking Status: Current every day smoker Past Alcohol Use History: None Reported Past Drug Use History: Marijuana - Past Family History Mother Family Medical History: Diabetes Mellitus, Hypertension General Exam Limitations: no limitations General appearance: alert Head exam: Present: atraumatic Eye exam: Present: normal appearance, PERRL, EOMI. Absent: scleral icterus ENT exam: Present: normal exam, mucous membranes moist, TM's normal bilaterally, normal external ear exam. Absent: normal oropharynx (Patient has mild swelling noted to the right lower jaw area. No sublingual edema. Generally poor dentition. No abscess identified along gumline with direct visualization or palpation. no trismus.) Neck exam: Present: normal inspection, full ROM. Absent: tenderness Respiratory exam: Present: normal lung sounds bilaterally. Absent: respiratory distress, wheezes Cardiovascular Exam: Present: regular rate, normal rhythm, normal heart sounds Course Vital Signs 01/06/21 20:26 Temperature 99 F Pulse Rate 82 Respiratory 18 Rate Blood Pressure 107/71 O2 Sat by Pulse 98 Oximetry Medical Decision Making - Medical Decision Making Patient treated for dental infection with penicillin. She will follow-up with her doctor. She will return for any worsening symptoms. Disposition Clinical Impression: Pain, dental Disposition: HOME SELF-CARE Condition: Good Instructions (If sedation given, give patient instructions): Toothache (ED) Additional Instructions: Take antibiotic as directed. Alternate Motrin and Tylenol as directed. Follow- up with your dentist. Return to the emergency room for any worsening symptoms. [facility] [address] [place] [phone] (existing clients only) New clients: [phone] 1st consult: $50 (includes XRs) Usually 30% less than private dentist for visits after. [employer] Have to pay $50 for Xrays and rest is covered [phone] Prescriptions: Ibuprofen [Motrin] 600 mg PO Q6HR PRN #20 tab PRN Reason: Pain Penicillin V Potassium [Pen Vee K] 500 mg PO Q6H 10 Days #40 tablet Acetaminophen [Tylenol] 500 mg PO Q4-6H PRN #20 tab PRN Reason: Pain Is patient prescribed a controlled substance at d/c from ED?: No Referrals: Kimmy Jones MD [REFERRING] - 1-2 days Time of Disposition: 21:37
== END 2021-01-06 22:01 | disposition home or self-care (01) ==
LOC: EC 19:40
DX: K08.89 Other specified disorders of teeth and supporting structures (principal); F17.200 Nicotine dependence, unspecified, uncomplicated; F12.90 Cannabis use, unspecified, uncomplicated; Z82.49 Family history of ischemic heart disease and other diseases of the circulatory system; Z83.3 Family history of diabetes mellitus
CPT/HCPCS: 99282; 96372; J1885

== ENCOUNTER 2024-11-21 16:38 | Inpatient (IN) | payer MEDICAID, OTHER ==
--- NOTE | 2024-11-21 22:44 | ED ---
Psych HPI - General Chief Complaint: Psychiatric Symptoms Stated Complaint: mental health eval Time Seen by Provider: 11/21/24 19:00 Source: patient, RN notes reviewed Mode of arrival: ambulatory Limitations: no limitations - History of Present Illness Initial Comments: 49-year-old female presents emergency department for psychiatric evaluation. Patient states she is depressed, having suicidal ideation. Patient states that she she tried to harm self in the past. Patient states she does not want to do this. Patient denies being in any physical pain at this time denies any drug or alcohol use currently does not have her psychiatric medications. - Related Data Previous Rx's Medication Instructions Recorded FLUoxetine HCL [PROzac] 40 mg PO DAILY 30 Days #30 cap 06/24/22 QUEtiapine [SEROquel] 100 mg PO HS 30 Days #30 tab 06/24/22 Allergies Allergy/AdvReac Type Severity Reaction Status Date / Time No Known Allergies Allergy Verified 06/21/22 20:00 Review of Systems ROS Statement: Those systems with pertinent positive or pertinent negative responses have been documented in the HPI. ROS Other: All systems not noted in ROS Statement are negative. Past Medical History Past Medical History: No Reported History Additional Past Medical History / Comment(s): Manic depression, History of Any Multi-Drug Resistant Organisms: None Reported Past Surgical History: Adenoidectomy, Section, Hernia Repair, Tonsillectomy Additional Past Surgical History / Comment(s): Femoral hernia surgery with mesh Past Psychological History: Anxiety, Bipolar, Depression Smoking Status: Current every day smoker Past Alcohol Use History: None Reported Past Drug Use History: Marijuana - Past Family History Mother Family Medical History: Diabetes Mellitus, Hypertension General Exam Limitations: no limitations General appearance: alert, in no apparent distress Head exam: Present: atraumatic, normocephalic, normal inspection Respiratory exam: Present: normal lung sounds bilaterally. Absent: respiratory distress, wheezes, rales, rhonchi, stridor Cardiovascular Exam: Present: regular rate, normal rhythm, normal heart sounds. Absent: systolic murmur, diastolic murmur, rubs, gallop, clicks GI/Abdominal exam: Present: soft, normal bowel sounds. Absent: distended, tenderness, guarding, rebound, rigid Neurological exam: Present: alert, oriented X3 Psychiatric exam: Present: depressed, flat affect Skin exam: Present: warm, dry, intact, normal color. Absent: rash Course Vital Signs 11/21/24 17:20 Temperature 97.9 F Pulse Rate 80 Respiratory 16 Rate Blood Pressure 110/74 O2 Sat by Pulse 99 Oximetry Medical Decision Making - Medical Decision Making Was pt. sent in by a medical professional or institution (, PA, ADMISSIONS ASSISTANT, urgent care, hospital, or prison...) When possible be specific @ -No Did you speak to anyone other than the patient for history (EMS, parent, family, police, friend...)? What history was obtained from this source @ -No Did you review nursing and triage notes (agree or disagree)? Why? @ -I reviewed and agree with nursing and triage notes Were old charts reviewed (outside hosp., previous admission, EMS record, old EKG, old radiological studies, urgent care reports/EKG's, prison records)? Report findings @ -No old charts were reviewed Differential Diagnosis (chest pain, altered mental status, abdominal pain women, abdominal pain men, vaginal bleeding, weakness, fever, dyspnea, syncope, headache, dizziness, GI bleed, back pain, seizure, CVA, palpatations, mental health, musculoskeletal)? @ -Differential Mental Health Depression, anxiety, bipolar, psychosis, schizophrenia, borderline personality, situational depression, adjustment disorder, behavioral disorder, brain tumor, malingering, substance abuse, encephalopathy, medication reaction, dementia, hypothyroidism, degenerative neurologic disorder, lupus.... This is not meant to be all-inclusive list EKG interpreted by me (3pts min.). @ -None X-rays interpreted by me (1pt min.). @ -None done CT interpreted by me (1pt min.). @ -None done U/S interpreted by me (1pt. min.). @ -None done What testing was considered but not performed or refused? (CT, X-rays, U/S, labs)? Why? @ -None What meds were considered but not given or refused? Why? @ -None Did you discuss the management of the patient with other professionals (professionals i.e. , PA, ADMISSIONS ASSISTANT, lab, RT, psych nurse, certified social workers in health care, accounts receivable accountant, teacher, special forces officer, disease case manager)? Give summary @ -EPS evaluated patient recommended inpatient treatment Was smoking cessation discussed for >3mins.? @ -No Was critical care preformed (if so, how long)? @ -No Were there social determinants of health that impacted care today? How? (Homelessness, low income, unemployed, alcoholism, drug addiction, transportation, low edu. Level, literacy, decrease access to med. care, detention, rehab)? @ -No Was there de-escalation of care discussed even if they declined (Discuss DNR or withdrawal of care, Hospice)? DNR status @ -No What co-morbidities impacted this encounter? (DM, HTN, Smoking, COPD, CAD, Cancer, CVA, ARF, Chemo, Hep., AIDS, mental health diagnosis, sleep apnea, morbid obesity)? @ -None Was patient admitted / discharged? Hospital course, mention meds given and route, prescriptions, significant lab abnormalities, going to OR and other pertinent info. @ -Admit to 3 W. Undiagnosed new problem with uncertain prognosis? @ -No Drug Therapy requiring intensive monitoring for toxicity (Heparin, Nitro, Insulin, Cardizem)? @ -No Were any procedures done? @ -No Diagnosis/symptom? @ -Depression, suicide ideation Acute, or Chronic, or Acute on Chronic? @ -Acute Uncomplicated (without systemic symptoms) or Complicated (systemic symptoms)? @ -Complicated Side effects of treatment? @ -No Exacerbation, Progression, or Severe Exacerbation? @ -No Poses a threat to life or bodily function? How? (Chest pain, USA, NC, pneumonia, PE, COPD, DKA, ARF, appy, cholecystitis, CVA, Diverticulitis, Homicidal, Suicidal, threat to staff... and all critical care pts) @ -Yes suicidal] - Lab Data Lab Results 11/21/24 Range/Units 20:03 SARS-CoV-2 (PCR) Not Detected (Not Detectd) Disposition Clinical Impression: Suicidal ideation, Depression Disposition: TRANSFER TO PSYCH HOSP/UNIT Referrals: None,Stated [Primary Care Provider] - 1-2 days Time of Disposition: 23:15
[2024-11-22] MEDS ORDERED: MAG HYDROX/AL HYDROX/SIMETH 355 ML BOTTLE PO PRN (02:41)
[2024-11-22] MEDS ORDERED: LORazepam 1 MG/0.5 ML VIAL IM PRN (02:41)
[2024-11-22] MEDS ORDERED: LORazepam 1 MG TAB PO PRN (02:41)
[2024-11-22] MEDS ORDERED: HALOPERIDOL LACTATE 5 MG/ML 1 ML VIAL IM PRN (02:41)
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
[2024-11-22] MEDS: ARIPiprazole 5 MG TAB PO SCH (09:00)
[2024-11-22] MEDS: lamoTRIgine 25 MG TAB PO SCH (09:01)
[2024-11-22] MEDS: SERTRALINE 50 MG TAB PO SCH (09:01)
[2024-11-22] MEDS: NICOTINE 14MG/24HR PATCH TRANSDERM SCH (09:01)
[2024-11-22 10:47] VITALS: BMI 17.7
--- NOTE | 2024-11-23 07:06 | XR ---
EXAMINATION TYPE: XR foot complete LT DATE OF EXAM: 11/22/2024 11:06 PM INDICATION: Patient age:Female; 49 years old; Reason for study: injury pain; PHH. pain COMPARISON: None TECHNIQUE: The left foot was examined in the AP, oblique, and lateral projections. FINDINGS: No evidence of any acute osseous pathology. No evidence of soft tissue swelling. Joints are preserve d. Incidental note is made of symphalangism of the fifth distal interphalangeal joint. IMPRESSION: No evidence of acute fracture. [facility], , 11/23/2024 7:03 AM
--- NOTE | 2024-11-23 07:13 | P.MDCNMH ---
History of Present Illness H&P Date: 11/22/24 49-year-old female with no significant past medical history Patient coming in for mental health evaluation Medicine was consulted for left foot pain Patient has no medical concerns at this time except for some discomfort in her left foot this been going on for over a month she is concerned that she might have fractured a piece of bone in her foot requesting some imaging denies any injuries denies any falls denies any traumas however she reports that she has been walking a lot denies any swelling denies any skin changes Patient denies any fevers chills nausea vomiting abdominal pain chest pain trouble breathing denies any dizziness lightheadedness denies any urinary changes or bowel habit changes denies any focal neurodeficits Review of systems All systems reviewed with pertinent positive negatives as per HPI on exam Constitutional: No acute distress, conversant, pleasant Eyes: Anicteric sclerae, moist conjunctiva, Pupils equal round reactive to light Neck: Supple, no masses, or JVD No carotid bruits No thyromegaly Lungs: Clear to auscultation Clear to percussion Normal respiratory effort, no accessory muscle use Cardiovascular: Heart regular in rate and rhythm, No murmurs, gallops, or rubs No peripheral edema Abdominal: Soft Nontender, no guarding, rebound or rigidity Abdomen moving with respiration Tenderness to percussion over the costovertebral angle left Extremities: No skin changes, swelling, open wounds over her left foot she has some point tenderness over the transmetatarsal bones of the fifth digit no digital cyanosis No clubbing Pedal pulses intact and symmetrical Radial pulses intact and symmetrical No calf tenderness Psychiatric: Alert and oriented to person, place and time Neuro Muscles Strength 5/5 in all 4 extremities Sensation to light touch grossly present throughout Cranial nerves II-XII grossly intact assessment and plan Left foot pain Check x-ray of the left foot No blood work available for review COVID test was negative Thank you for this consultation Past Medical History Past Medical History: No Reported History Additional Past Medical History / Comment(s): Manic depression, History of Any Multi-Drug Resistant Organisms: None Reported Past Surgical History: Adenoidectomy, Section, Hernia Repair, Tonsillectomy Additional Past Surgical History / Comment(s): Femoral hernia surgery with mesh Past Psychological History: Anxiety, Bipolar, Depression Smoking Status: Vaper Past Alcohol Use History: None Reported Past Drug Use History: Marijuana - Past Family History Mother Family Medical History: Diabetes Mellitus, Hypertension Medications and Allergies Home Medications Medication Instructions Recorded Confirmed Type FLUoxetine HCL [PROzac] 40 mg PO DAILY 30 Days #30 cap 06/24/22 Rx QUEtiapine [SEROquel] 100 mg PO HS 30 Days #30 tab 06/24/22 Rx Allergies Allergy/AdvReac Type Severity Reaction Status Date / Time No Known Allergies Allergy Verified 06/21/22 20:00 Physical Exam Vitals: Vital Signs Temp Pulse Resp BP Pulse Ox 11/22/24 21:00 97.9 F 98 16 102/51 97 11/22/24 09:00 98.1 F 99 16 89/65 99 Cranial Nerve Examination - Cranial Nerves Cranial Nerve II- Optic: Intact Cranial Nerve III- Oculomotor: Intact Cranial Nerve IV- Trochlear: Intact Cranial Nerve V- Trigeminal: Intact Cranial Nerve - Abducens: Intact Cranial Nerve VII- Facial: Intact Cranial Nerve VIII- Auditory: Intact Cranial Nerve IX- Glossopharyngeal: Intact Cranial Nerve X- Vagus: Intact Cranial Nerve XI- Accessory: Intact Cranial Nerve XII- Hypoglossal: Intact
[2024-11-23 07:59] LABS: Basophils # (A) 0.04 10*3/uL (0.00-0.10); Basophils % (A) 0.6 %; Eosinophils # (A) 0.12 10*3/uL (0.04-0.35); Eosinophils % (A) 1.8 %; HCT 38.8 % (37.2-46.3); HGB 13.0 g/dL (12.0-15.0); Lymphocytes # (A) 2.47 10*3/uL (0.90-5.00); Lymphocytes % (A) 37.8 %; MCH 34.0 pg (27.0-32.0); MCHC 33.5 g/dL (32.0-37.0); MCV 101.6 fL (80.0-97.0); Monocytes # (A) 0.50 10*3/uL (0.20-1.00); Monocytes % (A) 7.7 %; Neutrophils # (A) 3.39 10*3/uL (1.80-7.70); Neutrophils % (A) 51.9 %; Platelet Count 327 10*3/uL (140-440); RBC 3.82 10*6/uL (4.10-5.20); RDW 12.0 % (11.5-14.5); WBC 6.53 10*3/uL (4.50-10.00)
[2024-11-23 08:17] LABS: ALT 9 U/L (4-34); AST 15 U/L (14-36); African American GFR (CKD) >90 (>60 ml/min/1.73 sqM); Albumin 3.7 g/dL (3.5-5.0); Alkaline Phosphatase 50 U/L (38-126); Anion Gap 7 mmol/L; Blood Urea Nitrogen 13 mg/dL (7-17); Calcium 9.1 mg/dL (8.4-10.2); Carbon Dioxide 23 mmol/L (22-30); Chloride 107 mmol/L (98-107); Glucose 88 mg/dL (74-99); Non-African American GFR(CKD) >90 (>60 ml/min/1.73 sqM); Potassium 4.5 mmol/L (3.5-5.1); Sodium 137 mmol/L (137-145); Total Protein 5.9 g/dL (6.3-8.2)
--- NOTE | 2024-11-23 13:19 | P.PN ---
Progress Note - Text Progress Note Date: 11/23/24 IDENTIFYING DATA: Patient is a 49-year-old female currently living with her daughter unemployed. Chief complaint: Suicidal thoughts HPI: The patient was found in the guevara and accompany me to the office. She notes that she is doing "a lot better". She feels that the medications are starting to work. She was surprised because she actually went to groups today. She did note some nausea yesterday but this is starting to improve. She notes no depression or anxiety today. She feels that her energy is improving. She denies any problems with appetite or concentration. She denies any suicidal or homicidal ideations. Stressors: Housing, Family, Financial MENTAL STATUS EXAM: General Appearance: Patient appears to be older than her stated age is alert, mildly disheveled dressed in a hospital gown Behavior: Mildly guarded when discussing substance abuse history. Otherwise cooperative and engaged in the interview Speech: Patient's speech is fluent and nonpressured. Mood/Affect: Patient reports their mood is severely depressed, affect is congruent and constricted. Suicidality/Homicidality: Patient denies having any homicidal ideation intent or plan. Notes that she was having suicidal thoughts of overdosing Perceptions: Patient denies any visual hallucinations and denies any auditory hallucinations Though content/process: There is no evidence of any delusional thought content and thought process is linear and goal-directed. Memory and concentration: AOX3, grossly intact for the purposes of this session. Can spell "WORLD" backwards Judgment and insight: Poor/Poor Diagnosis: Major depressive disorder recurrent severe episode Posttraumatic stress disorder Anxiety unspecified Cocaine use disorder and partial remission Methamphetamine use disorder in full remission Tobacco use disorder Assessment: The patient is making improvements it appears that the medication combination is good. Continue to taper and the patient is on medication for stabilization prior to discharge. PLAN: -Patient is admitted under voluntary status to MHU for stabilization of psychiatric symptoms and safety. Patient has signed adult voluntary form and medication consent and is placed in patient's chart. -Medications : Continuing Abilify 5 mg take 1 tablet by mouth once daily for mood/depression Lamictal 25 mg take 1 tablet by mouth once daily for mood/depression Sertraline 50 mg take 1 tablet by mouth once daily for PTSD/depression/anxiety -Ativan and Haldol PRN for agitation/aggression -Will offer patient subtance use rehab -Patient was informed of the risks, benefits and side effects of the medication and patient verbally consented to taking the medications. Patient signed med consent form and was placed in chart. -Internal Medicine consult to perform medical evaluation and physical. -NRT -nicotine patch -SW on board for discharge planning. Encourage patient to participate in groups to work on coping skills.
[2024-11-23 13:59] LABS: Bilirubin,Urine Negative (Negative); Blood,Urine Negative (Negative); Color,Urine Colorless; Glucose,Urine (UA) Negative (Negative); Ketones,Urine Negative (Negative); Leukocyte Esterase,Urine Negative (Negative); Nitrite,Urine Negative (Negative); PH, Urine 6.5 (5.0-8.0); Protein,Urine Negative (Negative); Specific Gravity,Urine 1.017 (1.001-1.035); Urobilinogen,Urine <2.0 mg/dL (<2.0)
[2024-11-23 15:25] LABS: Cholesterol 202.00 mg/dL (0.00-200.00); HDL Cholesterol 61.70 mg/dL (40.00-60.00); LDL Cholesterol,Calculated 119.7 mg/dL (0.0-131.0); Triglycerides 103.00 mg/dL (0.00-149.00); VLDL Calculation 20.60 mg/dL (5.00-40.00)
[2024-11-23 20:32] LABS: Barbiturate Screen,Urine Not Detected (NotDetected); Benzodiazepines Screen,Urine Not Detected (NotDetected); Opiate Screen,Urine Not Detected (NotDetected); Oxycodone Screen, Urine Not Detected (NotDetected); Phencyclidine Screen,Urine Not Detected (NotDetected); Tricyclic Antidepressant,Urine Not Detected (NotDetected); Urn Cannabinoid Scrn Not Detected (NotDetected)
[2024-11-23] MEDS: IBUPROFEN 600 MG TAB PO PRN (21:10)
[2024-11-23] MEDS: ACETAMINOPHEN TAB 325 MG TAB PO PRN (21:11)
[2024-11-23 22:47] VITALS: RESP 16
[2024-11-23] MEDS: MAGNESIUM HYDROXIDE 2,400 MG/30 ML CUP PO PRN (22:47)
--- NOTE | 2024-11-24 13:13 | P.PN ---
Progress Note - Text Progress Note Date: 11/24/24 Interval History: Patient was seen in bed and was directable and agreeable to speak with senior grant writer in the office. She states being off of her medications for 8 months due to her inability to make her outpatient appointments and that this was the trigger for this admission. She states feeling better now that she is back on medications, reporting sleeping and eating well despite tooth pain that is chronic. She has not seen a dentist in some time and was encouraged to reestablish with them. Sh e states living with her daughter would likely return once discharged. At this time patient denies any suicidal or homicidal ideations, intent or plan. Patient denies any auditory, visual hallucinations and denies any paranoia or delusions. Patient denies any side effects from the medications and has been compliant with meds. Mental Status Exam: General Appearance: Patient appears to be slightly older than stated age is alert, directable, and cooperative. Behavior: Patient is calmly seated without any agitated behavior. Speech: Patient's speech is fluent and nonpressured. Mood/Affect: Mood is improving mildly, affect is congruent and constricted. Suicidality/Homicidality: Patient denies having any suicidal or homicidal ideation intent or plan. Perceptions: Patient denies any visual hallucinations and denies any auditory hallucinations Though content/process: There is no evidence of any delusional thought content and thought process is linear and goal-directed. Memory and concentration: AOX3, grossly intact for the purposes of this session Judgment and insight: Improving mildly Assessment Major depressive disorder, recurrent PTSD Anxiety, unspecified Stimulant use disorder Nicotine dependence Plan: -Patient continues to meet criteria for inpatient psychiatric admission for symptom stabilization and safety. Patient has signed adult voluntary form and medication consent and was placed in patient's chart. -Medications: Increase Zoloft to 100 mg daily tomorrow for depression/PTSD/anxiety, continue Abilify 5 mg daily as an adjunct, Lamictal 25 mg daily for mood stabilization -When necessary Ativan and Haldol for agitation/aggression. -Labs: Reviewed -NRT - nicotine patch -SW on board for discharge planning. Encouraged the patient to participate in milieu. Anticipate discharge home with daughter on Wednesday
[2024-11-25] MEDS: SERTRALINE 100 MG TAB PO SCH (09:27)
--- NOTE | 2024-11-26 21:11 | P.PN ---
Progress Note - Text Progress Note Date: 11/25/24 Interval History: Patient was seen in bed and was directable and agreeable to speak with clinical writer. She attended group today and has up in the lounge with peers. At this time patient denies any suicidal or homicidal ideations, intent or plan. Patient denies any auditory, visual hallucinations and denies any paranoia or delusions. Patient denies any side effects from the medications and has been compliant with meds. Mental Status Exam: General Appearance: Patient appears to be slightly older than stated age is alert, directable, and cooperative. Behavior: Patient is calmly seated without any agitated behavior. Speech: Patient's speech is fluent and nonpressured. Mood/Affect: Mood is improving mildly, affect is congruent and constricted. Suicidality/Homicidality: Patient denies having any suicidal or homicidal ideation intent or plan. Perceptions: Patient denies any visual hallucinations and denies any auditory hallucinations Though content/process: There is no evidence of any delusional thought content and thought process is linear and goal-directed. Memory and concentration: AOX3, grossly intact for the purposes of this session Judgment and insight: Improving mildly Assessment/Plan: -Patient continues to meet criteria for inpatient psychiatric admission for symptom stabilization and safety. Medications: Zoloft was increased to 100 mg daily starting this morning and will continue at this dose for depression/anxiety. -When necessary Ativan and Haldol for agitation/aggression. -Encouraged the patient to participate in milieu. Will continue to monitor response to medications.
--- NOTE | 2024-11-26 21:13 | P.PN ---
Progress Note - Text Progress Note Date: 11/26/24 Interval History: Patient was cooperative on assessment. She reports good mood, fair sleep. She is recorded as having slept at least 7 hours overnight. At this time patient denies any suicidal or homicidal ideations, intent or plan. Patient denies any auditory, visual hallucinations and denies any paranoia or delusions. Patient denies any side effects from the medications and has been compliant with meds. She is hopeful for discharge tomorrow. Mental Status Exam: General Appearance: Patient appears to be slightly older than stated age is alert, directable, and cooperative. Behavior: Patient is calmly seated without any agitated behavior. Speech: Patient's speech is fluent and non-pressured. Mood/Affect: Mood is improving mildly, affect is congruent and constricted. Suicidality/Homicidality: Patient denies having any suicidal or homicidal ideation intent or plan. Perceptions: Patient denies any visual hallucinations and denies any auditory hallucinations Though content/process: There is no evidence of any delusional thought content and thought process is linear and goal-directed. Memory and concentration: AOX3, grossly intact for the purposes of this session Judgment and insight: Improving mildly Assessment/Plan: -Patient continues to meet criteria for inpatient psychiatric admission for symptom stabilization and safety. -Continue medications as currently prescribed and monitor response to medications. -When necessary Ativan and Haldol for agitation/aggression. -Encouraged the patient to participate in milieu.
[2024-11-27 11:15] VITALS: BP 83/54; PULSE 84; TEMP 97.3
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
== END 2024-11-27 12:59 | disposition home or self-care (01) | DRG 751 ==
LOC: EC 16:38 → 3MHU 11-22 02:37
PROVIDERS: ADMIT Psychiatry & Neurology Psychiatry; ATTEND Psychiatry & Neurology Psychiatry
DX: F33.2 Major depressive disorder, recurrent severe without psychotic features (principal); F14.90 Cocaine use, unspecified, uncomplicated; F15.11 Other stimulant abuse, in remission; F17.200 Nicotine dependence, unspecified, uncomplicated; F31.9 Bipolar disorder, unspecified; F41.9 Anxiety disorder, unspecified; F43.10 Post-traumatic stress disorder, unspecified; G47.10 Hypersomnia, unspecified; G89.29 Other chronic pain; K08.89 Other specified disorders of teeth and supporting structures; R45.851 Suicidal ideations; Z56.0 Unemployment, unspecified; Z79.899 Other long term (current) drug therapy; Z91.199 Patient's noncompliance with other medical treatment and regimen due to unspecified reason; Z91.51 Personal history of suicidal behavior; Z11.52 Encounter for screening for COVID-19; M79.671 Pain in right foot
CPT/HCPCS: 80053; 80061; 80306; 81003; 83036; 84443; 85025; 87635; 99285